=== PATIENT | female | born 1950 | race Caucasian/White ===

== ENCOUNTER 2016-09-13 18:29 | Emergency (ER) | payer OTHER ==
[~2016-09-13] VITALS: Ht 160 cm; Wt 93.0 kg
[~2016-09-13 18:29] MED LIST: IBUP-1542 PO; TRAM50TA2 PO
[2016-09-13 18:32] VITALS: Ht 160 cm; Wt 93.0 kg
[2016-09-13] MEDS ORDERED: ACETAMINOPHEN 325 MG TAB PO STA (18:55)
[2016-09-13] MEDS ORDERED: CEFEPIME 2GM/50 ML (PMX) 50 ML IVPB STA (18:55)
[2016-09-13] MEDS ORDERED: SODIUM CHLORIDE 0.9% 1L BAG IV* STA (18:55)
[2016-09-13] MEDS ORDERED: VANCOMYCIN 1 GM (PMX) 250 ML IVPB ONE (19:00)
[2016-09-13 19:26] LABS: BASOPHILS % 0.2 % (0.0-2.0); HEMATOCRIT 40.5 % (37.0-47.0); HEMOGLOBIN 14.5 g/dl (12.0-16.0); LYMPHOCYTES # 0.9 10^3/ul (0.8-2.9); LYMPHOCYTES % 6.8 % (15.0-51.0); MEAN CORPUSCULAR HEMOGLOBIN 30.3 pg (29.0-33.0); MEAN CORPUSCULAR HGB CONC 35.8 g/dl (32.0-37.0); MEAN CORPUSCULAR VOLUME 84.6 fl (82.0-101.0); MEAN PLATELET VOLUME 9.2 fl (7.4-10.4); MONOCYTE # 0.6 10^3/ul (0.3-0.9); MONOCYTES % 4.7 % (0.0-11.0); NEUTROPHIL # 11.9 10^3/ul (1.6-7.5); NEUTROPHILS % 87.7 % (39.0-77.0); PLATELET COUNT 281 10^3/UL (140-415); RED BLOOD COUNT 4.79 10^6/ul (4.20-5.40); RED CELL DISTRIBUTION WIDTH 13.1 % (11.5-14.5); WHITE BLOOD COUNT 13.6 10^3/ul (4.8-10.8)
[2016-09-13 19:40] LABS: INR 1.14; PROTIME 14.6 Sec (12.2-14.2); PT RATIO 1.1
[2016-09-13 19:41] LABS: PARTIAL THROMBOPLASTIN TIME 34.8 Sec (25.0-35.0)
[2016-09-13 20:03] LABS: ADD UMIC YES; UR ASCORBIC ACID 40 mg/dL (NEGATIVE); UR BACTERIA FEW /HPF (NONE SEEN); UR BILIRUBIN (Dip) NEGATIVE (NEGATIVE); UR BLOOD (Dip) 2+ mg/dL (NEGATIVE); UR CLARITY SLIGHTLY CLOUDY (CLEAR); UR COLOR AMBER (YELLOW); UR GLUCOSE (Dip) NEGATIVE (NEGATIVE); UR KETONES (Dip) 1+ mg/dL (NEGATIVE); UR LEUKOCYTE ESTERASE (Dip) NEGATIVE Leu/ul (NEGATIVE); UR MUCUS MODERATE /HPF (NONE SEEN); UR NITRITE (Dip) NEGATIVE (NEGATIVE); UR RBC 19 /HPF (0-5); UR SPECIFIC GRAVITY (Dip) 1.026 (1.003-1.030); UR SQUAMOUS EPITHELIAL CELL FEW /HPF (FEW); UR TOTAL PROTEIN (Dip) 2+ mg/dl (NEGATIVE); UR UROBILINOGEN (Dip) NEGATIVE (NEGATIVE)
[2016-09-13 20:09] LABS: ALANINE AMINOTRANSFERASE 40 IU/L (13-69); ALBUMIN 4.2 g/dl (3.3-4.9); ALBUMIN/GLOBULIN RATIO 1.16; ALKALINE PHOSPHATASE 88 IU/L (42-121); ANION GAP 18 (8-16); ASPARTATE AMINO TRANSFERASE 25 IU/L (15-46); BILIRUBIN,INDIRECT 0.6 mg/dl (0-1.1); BILIRUBIN,TOTAL 0.6 mg/dl (0.2-1.3); BLOOD UREA NITROGEN 14 mg/dl (7-20); CALCIUM 9.1 mg/dl (8.4-10.2); CARBON DIOXIDE 25 mmol/L (21-31); CHLORIDE 97 mmol/L (97-110); CREATININE 0.79 mg/dl (0.44-1.00); GLUCOSE 177 mg/dl (70-220); SODIUM 137 mmol/L (135-144); TOTAL PROTEIN 7.8 g/dl (6.1-8.1)
--- NOTE | 2016-09-13 20:09 | RADRPT ---
PROCEDURE: XR Chest. CLINICAL INDICATION: Sepsis TECHNIQUE: Anterior chest x-ray. COMPARISON: 07/26/2013 FINDINGS: The lungs are clear. No pleural effusion identified. There is no evidence of pneumothorax. The cardiomediastinal silhouette is unremarkable. The soft tissues are normal. Osseous structures are unremarkable. IMPRESSION: 1. No acute disease is seen in the chest. RPTAT: HLDM .John Noland MD, MD Date Time Electronically viewed and signed by .John Noland MD, on 09/13/2016 20:09 .M/
[2016-09-13 20:10] LABS: POTASSIUM 2.9 mmol/L (3.5-5.1)
[2016-09-13] MEDS ORDERED: POTASSIUM CHLORIDE (SR) 20 MEQ TAB PO STA (20:10)
[2016-09-13 20:21] LABS: TROPONIN-I < 0.012 ng/ml (0.00-0.12)
[2016-09-13] MEDS ORDERED: ACET325T33 PO (20:36)
[2016-09-13] MEDS ORDERED: CEPH-443 PO (20:36)
[2016-09-13] MEDS ORDERED: IBUP-1542 PO (20:36)
--- NOTE | 2016-09-13 20:55 | ERD ---
ER Documentation Chief Complaint Date/Time DATE: 09/13/16 TIME: 20:53 Chief Complaint FEVER, BODY ACHE, NAUSEA, DIARRHEA AND HEADACHE X 2 DAYS NO ABD PAIN HPI Patient is a 66-year-old female with hypertension who presents with fever. She has bilateral hand pain and back pain. She has had vomiting and diarrhea over the past 2 days. The symptoms started yesterday. She had chills. She has had no treatment as of yet. Upon review of old medical records this is the patient' s third visit to the ER since 2013. She says that her primary doctor is Dr. Arlette Romero. ROS All systems reviewed and are negative except as per history of present illness. Medications Home Meds Active Scripts Acetaminophen* (Tylenol*) 325 Mg Tablet, 2 TAB PO Q8 Y for PAIN AND OR ELEVATED TEMP, #20 TAB Prov:AFSHAN CHANG MD 09/13/16 Ibuprofen* (Motrin*) 600 Mg Tab, 600 MG PO Q8, #30 TAB Prov:AFSHAN CHANG MD 09/13/16 Cephalexin* (Keflex*) 500 Mg Capsule, 500 MG PO QID for 7 Days, CAP Prov:AFSHAN CHANG MD 09/13/16 Ibuprofen* (Motrin*) 600 Mg Tab, 600 MG PO Q6H Y for PAIN, #20 TAB Prov:HELENA AMBROCIO MD 09/03/14 Tramadol HCl (Tramadol HCl) 50 Mg Tab, 50 MG PO Q4 Y for PAIN, #20 TAB Prov:HELENA AMBROCIO MD 09/03/14 Allergies Allergies: Coded Allergies: No Known Allergy (Unverified , 09/03/14) PMhx/Soc History of Surgery: No Anesthesia Reaction: No Hx Neurological Disorder: No Hx Respiratory Disorders: No Hx Cardiac Disorders: Yes (HTN) Hx Psychiatric Problems: No Hx Miscellaneous Medical Probl: Yes (SHINGLES TO L BACK AND CHEST) Hx Alcohol Use: No Hx Substance Use: No Hx Tobacco Use: No Smoking Status: Never smoker FmHx Family History: diabetes Physical Exam Vitals Vital Signs Date Time Temp Pulse Resp B/P Pulse Ox O2 Delivery O2 Flow Rate FiO2 09/13/16 20:44 97.5 107 19 142/71 99 Room Air 09/13/16 18:32 102.2 140 20 176/85 95 Physical Exam Const: No acute distress Head: Atraumatic Eyes: Normal Conjunctiva ENT: Normal External Ears, Nose and Mouth. Neck: Full range of motion..~ No meningismus. Resp: Clear to auscultation bilaterally Cardio: Tachycardic rate without murmur Abd: Soft, non tender, non distended. Normal bowel sounds Skin: No petechiae or rashes Back: No midline or flank tenderness Ext: No cyanosis, or edema Neur: Awake and alert Psych: Normal Mood and Affect Result Diagram: 09/13/16190909/13/161909 Results 24 hrs Laboratory Tests Test 09/13/16 19:10 09/13/16 19:24 09/13/16 20:05 White Blood Count 13.610^3/ul Red Blood Count 4.7910^6/ul Hemoglobin 14.5g/dl Hematocrit 40.5% Mean Corpuscular Volume 84.6fl Mean Corpuscular Hemoglobin 30.3pg Mean Corpuscular Hemoglobin Concent 35.8g/dl Red Cell Distribution Width 13.1% Platelet Count 66811^3/UL Mean Platelet Volume 9.2fl Neutrophils % 87.7% Lymphocytes % 6.8% Monocytes % 4.7% Eosinophils % 0.0% Basophils % 0.2% Nucleated Red Blood Cells % 0.0/100WBC Neutrophils # 11.910^3/ul Lymphocytes # 0.910^3/ul Monocytes # 0.610^3/ul Eosinophils # 0.010^3/ul Basophils # 0.010^3/ul Nucleated Red Blood Cells # 0.010^3/ul Prothrombin Time 14.6Sec Prothrombin Time Ratio 1.1 INR International Normalized Ratio 1.14 Activated Partial Thromboplast Time 34.8Sec Sodium Level 137mmol/L Potassium Level 2.9mmol/L Chloride Level 97mmol/L Carbon Dioxide Level 25mmol/L Anion Gap 18 Blood Urea Nitrogen 14mg/dl Creatinine 0.79mg/dl Glucose Level 177mg/dl Lactic Acid Level 2.1mmol/L Calcium Level 9.1mg/dl Total Bilirubin 0.6mg/dl Direct Bilirubin 0.00mg/dl Indirect Bilirubin 0.6mg/dl Aspartate Amino Transf (AST/SGOT) 25IU/L Alanine Aminotransferase (ALT/SGPT) 40IU/L Alkaline Phosphatase 88IU/L Troponin I < 0.012ng/ml Total Protein 7.8g/dl Albumin 4.2g/dl Globulin 3.60g/dl Albumin/Globulin Ratio 1.16 Urine Color CINDY Urine Clarity SLIGHTLY CLOUDY Urine pH 5.0 Urine Specific Gilbert 1.026 Urine Ketones 1+mg/dL Urine Nitrite NEGATIVEmg/dL Urine Bilirubin NEGATIVEmg/dL Urine Urobilinogen NEGATIVEmg/dL Urine Leukocyte Esterase NEGATIVELeu/ul Urine Microscopic RBC 19/HPF Urine Microscopic WBC 4/HPF Urine Squamous Epithelial Cells FEW/HPF Urine Bacteria FEW/HPF Urine Mucus MODERATE/HPF Urine Hemoglobin 2+mg/dL Urine Glucose NEGATIVEmg/dL Urine Total Protein 2+mg/dl Bedside Glucose 169mg/dL Current Medications Medications (Trade) Dose Ordered Sig/Patel Route PRN Reason Start Time Stop Time Status Last Admin Dose Admin Sodium Chloride (NS) 2,880 ml BOLUS OVER 2 HOURS STAT IV* 09/13/16 18:55 09/13/16 18:56 DC 09/13/16 19:23 Acetaminophen 650 mg 650 mg ONCE STAT PO 09/13/16 18:55 09/13/16 18:56 DC 09/13/16 19:30 Cefepime HCl 50 ml @ 100 mls/hr ONCE STAT IVPB 09/13/16 18:55 09/13/16 19:24 DC 09/13/16 19:38 Vancomycin HCl (Vancocin) 250 ml @ 125 mls/hr ONCE ONCE IVPB 09/13/16 19:00 09/13/16 20:59 Potassium Chloride (Klor-Con 20) 40 meq ONCE STAT PO 09/13/16 20:10 09/13/16 20:11 DC Procedures/MDM EKG read by me: Rate/Rhythm: Sinus tachycardia Intervals: Normal Impression: Sinus tachycardia without ischemia Chest x-ray shows no pneumonia or pneumothorax per radiology. Patient is a 66-year-old female with hypertension who presents with fever. She has vomiting and diarrhea. She has diffuse body pain. I believe this is most likely a viral illness. I doubt true sepsis or serious bacterial infection. The patient was given broad-spectrum antibiotics as well as fluids while sepsis was being worked up. She has a mild UTI which I will treat with Keflex 4 times a day for 1 week. I do not believe she requires admission the hospital at this time. She feels much better after treatment. She can return for worsening symptoms. She should follow-up with her primary doctor within 24-48 hours for reevaluation. The patient understands the plan and is okay for discharge at this time. Departure Diagnosis: Primary Impression: Cystitis Additional Impression: Fever Fever type: unspecified Qualified Code: R50.9 - Fever, unspecified fever cause Condition: Fair Patient Instructions: Cystitis, Fever Control (Adult) Referrals: ARLETTE ROMERO Additional Instructions: Visite a carol mcgill para un EXAMEN.Regrese a estas instalaciones si no se mejora gypsy esperbamos o gypsy le dijimos. AFSHAN CHANG MD Sep 13, 2016 20:55
[2016-09-13 23:23] VITALS: BP 124/68; PULSE 88; RESP 18; TEMP 97.5
== END 2016-09-13 23:24 | disposition home or self-care (01) ==
LOC: E/R 18:29
DX: N30.90 Cystitis, unspecified without hematuria (principal); I10 Essential (primary) hypertension
CPT/HCPCS: 36415; 71010; 80053; 81001; 82962; 83605; 84484; 85025; 85610; 85730; 87040; 87086; 93005; 96374; 96375; 99285; J3370; J7030

== ENCOUNTER 2017-03-01 04:53 | Emergency (ER) | END 2017-03-01 07:11 | disposition home or self-care (01) ==